=== PATIENT | female | born 1955 | race Caucasian/White ===

== ENCOUNTER 2019-10-11 06:37 | Day surgery (SDC) | payer OTHER ==
[~2019-10-11] VITALS: Ht 157.5 cm; Wt 73.7 kg
[~2019-10-11 06:37] MED LIST: ALPR.5 PO; CYCL10 PO; LEVSOD75 PO; [UNRECOGNIZED DRUG - OTHER]
--- NOTE | 2019-10-11 08:19 | NUR ---
10/11/19 0819 Armida Blevins NO PREOP ANTIBIOTIC ORDERED
--- NOTE | 2019-10-11 08:35 | NUR ---
1 IV ATTEMPT BY EVELIA CANAS. History, Chart, Medications and Allergies reviewed before start of procedure. Lungs clear T/O to Auscultation. Patient confirms NPO status and agrees with scheduled surgery. Pre-Op teaching done. Pt verbalizes understanding. Patient reports completing Chlorhexadine shower X1 prior to admission to hospital.
--- NOTE | 2019-10-11 09:35 | NUR ---
"DAY SURGERY RN | DISCHARGE VSS. A/O. DENIES PAIN AND NAUSEA. TOLERATING PO FLUIDS AND FOOD. DISCHARGE INSTRUCTIONS AND RX GIVEN TO PATIENT. DENIES QUESTIONS. STEADY GAIT. TO CAR VIA WHEELCHAIR BY THIS RN. SIGNATURE OBTAINED FROM EAP COUNSELOR."
== END 2019-10-11 23:17 | disposition home or self-care (01) ==
LOC: ORSCMMR 06:37 → ORD 08:00 → ORSCMMR 08:00
PROVIDERS: Orthopaedic Surgery
PROC: 0LN70ZZ Release Right Hand Tendon, Open Approach (ICD-10-PCS; principal; 2019-10-11 08:00)
PROC: 01N50ZZ Release Median Nerve, Open Approach (ICD-10-PCS; principal; 2019-10-11 08:00)
DX: G56.01 Carpal tunnel syndrome, right upper limb (principal); M65.331 Trigger finger, right middle finger; E03.9 Hypothyroidism, unspecified; Z79.899 Other long term (current) drug therapy
CPT/HCPCS: J2250; J2704; J3010; J7120

== ENCOUNTER → 2020-07-30 | Outpatient (CLI) | payer OTHER | LOC: PLD 11:12 → LAB SHORT 11:12 | DX: D48.5 Neoplasm of uncertain behavior of skin (principal) | CPT/HCPCS: 88305 ==

== ENCOUNTER 2022-06-22 07:45 | Day surgery (SDC) | payer OTHER ==
[~2022-06-22] VITALS: Ht 157.5 cm; Wt 75.3 kg
[2022-06-22] MEDS ORDERED: TIMO.5OPSO (07:58)
== END 2022-06-22 09:34 | disposition home or self-care (01) ==
LOC: ORSCSDS 07:45
PROVIDERS: Student in an Organized Health Care Education/Training Program
PROC: 08DJ3ZZ Extraction of Right Lens, Percutaneous Approach (ICD-10-PCS; principal; 2022-06-22 09:00)
DX: H25.13 Age-related nuclear cataract, bilateral (principal); E66.9 Obesity, unspecified; Z68.30 Body mass index [BMI] 30.0-30.9, adult; Z79.899 Other long term (current) drug therapy
CPT/HCPCS: J2001; J2250; J3010; V2632

== ENCOUNTER 2022-07-06 06:15 | Day surgery (SDC) | payer OTHER ==
[~2022-07-06] VITALS: Ht 157.5 cm; Wt 75.7 kg
[~2022-07-06 06:15] MED LIST changes: +TIMO.5OPSO
--- NOTE | 2022-07-06 06:32 | NUR ---
07/06/22 0632 Keturah Devine CALL LIGHT WITHIN REACH. MILTONIN IN LEFT EYE AT 0630 AND DAVIDSON AT 0631
--- NOTE | 2022-07-06 08:14 | NUR ---
07/06/22 0814 Chrissy Sullivan PT UP IN RECLINER TOLERATING DIANA MIST. DENIES PAIN. DENIES NAUSEA.
== END 2022-07-06 08:20 | disposition home or self-care (01) ==
LOC: ORSCSDS 06:15
PROVIDERS: Student in an Organized Health Care Education/Training Program
PROC: 08RK3JZ Replacement of Left Lens with Synthetic Substitute, Percutaneous Approach (ICD-10-PCS; principal; 2022-07-06 07:30)
DX: H25.12 Age-related nuclear cataract, left eye (principal); Z96.1 Presence of intraocular lens; H40.9 Unspecified glaucoma; E03.9 Hypothyroidism, unspecified; Z79.899 Other long term (current) drug therapy
CPT/HCPCS: A9270; J2001; J2250; J3010; J7040; V2632